=== PATIENT | male | born 1960 | race Caucasian/White ===

== ENCOUNTER 2024-08-03 11:14 | Emergency (ER) | payer MEDICAID, OTHER, SELFPAY ==
--- NOTE | ~2024-08-03 | XR_ITS ---
EXAMINATION: XR ABDOMEN 1 VIEW (KUB) HISTORY: r/o ingested foreign body COMPARISON: There are no prior studies for comparison. FINDINGS: Two supine views of the abdomen are submitted. The bowel gas pattern is unremarkable, without evidence of mechanical obstruction. There are surgical clips in the right upper quadrant and right lower quadrant. There is a phlebolith the left hemipelvis. No radiopaque foreign body is identified. There are no abnormal soft tissue masses. The bones are intact. XR/XR KUB IMPRESSION: No radiopaque foreign body is identified. Electronically signed by: Gianfranco Nicole MD 08/03/2024 01:14 PM EST
[2024-08-03 12:12] VITALS: BP 118/87; PULSE 58; RESP 20; TEMP 36.9; O2SAT 95; BMI 28.2
--- NOTE | 2024-08-03 12:48 | ED.GENADULT ---
HPI - General Adult General Chief complaint: General Medical Stated complaint: dental issue Time Seen by Provider: 08/03/24 12:34 Source: patient and parts interpreter Mode of arrival: ambulatory Limitations: no limitations History of Present Illness ED Provider: JILL SANCHEZ narrative: 64 yo male otherwise healthy here with c/o swallowing a crown he thinks or Saturday he wants it replaced but he dentist states he needs an xray first before he can have it replaced. He has no abdominal pain n/v/d, fevers. My dentist is endy BARRIOS complaint: FB ingestion Onset (ago): day(s) (5) Location: mouth Radiation: non-radiation Severity: mild Relieving factors: none Exacerbating factors: none Associated symptoms: denies other symptoms Treatments prior to arrival: none Related Data Allergies Allergy/AdvReac Type Severity Reaction Status Date / Time No Known Allergies Allergy Verified 08/03/24 12:21 Review of Systems Review of Systems: Constitutional : No Fever, No Chills, No Fatigue ENT/Mouth : No sore throat, No Rhinorrhea Eyes: No Eye Pain, No Swelling, No Redness Cardiovascular : No Chest Pain, No SOB, No Dyspnea on Exertion Respiratory : No Cough, No Sputum Gastrointestinal : No Nausea, No Vomiting, No Diarrhea, No abdominal Pain Genitourinary : No Dysuria, No Urinary Frequency, No Hematuria, Musculoskeletal : No joint pain, No Myalgias All other systems reviewed and are negative [facility] Past Medical History Attestation statement: The following information was validated with the patient. Medical History (Updated 08/03/24 @ 12:57 by Yamini Ford DO) No pertinent past medical history Social History Social History (Updated 08/03/24 @ 12:57 by Yamini Ford DO) Patient Tobacco Use Status: Never used Tobacco Advance Directives: No Advance Directives Information Provided: No Do you have a plan to hurt others: No Plan Physical Exam ED Vital Signs: Vital Signs - 24 hr 08/03/24 12:12 Temperature 98.4 F Pulse Rate 58 Respiratory Rate 20 Blood Pressure 118/87 Pulse Oximetry 95 Oxygen Delivery Method Room Air BMI result Body Mass Index 28.2 Appearance: Alert. Oriented X3. No acute distress. Eyes: Pupils equal, round and reactive to light. ENT: Pharynx normal. Neck: Normal inspection. Neck supple. CVS: Normal heart rate and rhythm. Pulses normal. Respiratory: No respiratory distress. Breath sounds normal. Abdomen: Soft and nontender. Skin: Skin warm and dry. Normal skin color. Normal skin turgor. Extremities: No lower extremity edema. No calf ttp Neuro: Oriented X 3. No motor deficit. No sensory deficit. CN2-12 intact Medical Decision Making Medical Decision Making MDM Narrative: 64 yo male with no known PMH here with c/o needing KUB for possible crown FB ingestion about 4 to 5 days ago he has no GI complaints will obtain xray and I did write on his dental note request that there is no FB noted today. Differential Diagnosis Differential Diagnoses: The differential diagnosis associated with the presentation includes FB ingestion, passed FB Independent Interpretation I performed an independent interpretation of an: Plain X-Ray (no FB seen) Radiology Impression Discussion of test interpretation with radiology: I have reviewed the radiologist's reading. Discharge Plan Discharge Clinical Impression: Normal exam Patient Disposition: Home, Self-Care Instructions: Normal Exam (ED) Additional Instructions: return for fevers, vomiting, unable to eat or drink, severe abdominal pain KUB negative for foreign body today Print Language: Bermudian
--- OUTSIDE RECORDS SUMMARY | 2024-08-03 14:02 | XMS_ITS | Clinical Summary ---
Author Organization [facility] Address [address] [place] [address] [address] [place] [address] Care Team Providers Care Tank Carpenter Name Role Phone Unavailable Primary Care Provider Unavailabl e Allergies No known active allergies Medications clomiPRAMINE (Anafranil) 25 MG capsule Take 25 mg by mouth at bedtime. Active clonazePAM (KlonoPIN) 0.5 MG tablet Take 0.5 mg by mouth 2 times daily. Active losartan (Cozaar) 25 MG tablet Take by mouth. Active levothyroxine (Tirosint) 125 MCG capsule Take by mouth before breakfast. Active famotidine (Pepcid) 40 MG tablet Take by mouth. Active aspirin 325 MG tablet Take 325 mg by mouth in the morning. Active atorvastatin (Lipitor) 40 MG tablet Take 40 mg by mouth in the morning. 08/23/2022 Active lamoTRIgine (LaMICtal) 200 MG tablet TAKE 1 TABLET BY MOUTH EVERY EVENING (TOTAL DAILY DOSE 300 MG/DAY) 10/22/2022 Active labetalol (Normodyne) 100 MG tablet Take 1 tablet by mouth at bedtime. 09/19/2022 Active levothyroxine (Synthroid, Levoxyl) 25 MCG tablet Take 25 mcg by mouth. 10/13/2022 Active omeprazole (PriLOSEC) [address] capsule capsule(s) oral 03/11/2020 Active Active Problems No known active problems Encounters Date Type Department Care Team Description 07/31/2024 10:00 AM EST Office Visit [facility] ADULT DENTAL [address] [place] [address] Bharati Costello 06/15/2024 11:00 AM EST Office Visit [facility] ADULT DENTAL [address] [place] [address] Bharati Costello from Last 3 Months Immunizations Name Administration Dates Next Due Hep B, adult 03/01/2016,08/24/2015,07/26/2015 Influenza injectable quadriv alent IIV4 with preservative 03/01/2016 Influenza injectable quadriv alent preservative free 07/12/2023,04/16/2022,03/27/2021,2020,04/21/2019,06/02/2018,08/01/2017,1 07/10/2014 Pfizer Covid-19 Vaccine 12+ 07/12/2023,0 06/27/2021,10/14/2020,2020 Tdap 06/08/2015 Social History Tobacco Use Types Packs/Day Years Used Date Smoking Tobacco: Never Smokeless Tobacco: Never Tobacco Cessation:Counseling Given: Not Answered Sex and Gender Information Value Date Recorded Sex Assigned at Male 06/29/2022 12:57 PM EST Legal Sex Male 9:02 AM EST Gender Identity Male 06/29/2022 12:57 PM EST Sexual Orientation Straight 06/29/2022 12 :57 PM EST Last Filed Vital Signs Vital Sign Reading Time Taken Comments Blood Pressure 129/82 2024 9:08 AM EDT ox9 4 Pulse 78 2024 9:08 AM EDT Temperature 36.6 ??C (97.8 ??F) 08/06/2022 12:[address] Respiratory Rate 16 08/06/2022 12:56 PM EST Oxygen Saturation 95% 08/06/2022 12:56 PM EST Inhaled Oxygen Concentration - - Weight 80.4 kg (177 lb 3.2 oz) 08/06/2022 12:56 PM EST Height - - Body Mass Index - - Plan of Treatment Health Maintenance Due Date Last Done Comments CT Colonography 1961 Colonoscopy 1961 Colorectal Cancer Screening 1961 Depression Screening 1961 FIT DNA/Cologuard 1961 FIT 1961 FOBT 1961 HIV Screening 1961 Lipid Panel 1961 SDOH Screening 1961 Sigmoidoscopy 1961 Alcohol/Substance Use Screening 1973 Hepatitis C Screening 1979 Hepatitis A Vaccines (1 of 2 - Risk 2-dose series) 01/09/1980 Pneumococcal Vaccine: 50+ Years (1 of 1 - PCV) 2011 RSV Patients and Patients Aged 60 years or older (1 - Risk 60-74 years 1-dose series) 2021 Dental Oral Exam 05/11/2024 11/08/2023 Dental Prophylaxis 05/11/2024 11/08/2023 Dental X-Ray: Bitewings 01/01/2025 01/01/20, 11/08/2023, 07/19/2022 DTaP/Tdap/Td Vaccines (2 - Td or Tdap) 06/08/2025 06/08/2015 Tobacco Screening 07/31/2025 07/31/2024 Dental X-Ray: Full Mouth 01/01/2027 01/01/2024, 06/25 Hepatitis B Vaccines Completed 03/01/2016, 08/24/2015, 07/26/2015 COVID-19 Vaccine Completed 03/20/2024, , 06/27/2021, Additional history exists Influenza Vaccine Completed 03/20/2024, , 04/16/2022, Additional history exists Zoster Vaccines Completed 03/20/2024, 08/21/2023 HIB Vaccines Aged Out No longer eligi ble based on patient's age to complete this topic HPV Vaccines Aged Out No longer eligi ble based on patient's age to complete this topic IPV Vaccines Aged Out No longer eligi ble based on patient's age to complete this topic Meningococcal Vaccine Aged Out No thony krysta eligible based on patient's age to complete this topic RSV under 20 months Aged Out No longe r eligible based on patient's age to complete this topic Rotavirus Vaccines Aged Out No longer eligible based on patient's age to complete this topic Procedures Procedure Name Priority Date/Time Associated Diagnosis Comments ADJUNCTIVE GENERAL SERVICES - PROFESSIONAL VISITS - CASE PRESENTATION, SUBSEQUENT TO DETAILED AND EXTENSIVE TREATMENT PLANNING Routine 07/31/2024 10:00 AM EST LIMITED ORAL EVALUATION - PROBLEM FOCUSED Routine 07/31/2024 10:00 AM EST ADJUNCTIVE GENERAL SERVICES - PROFESSIONAL VISITS - CASE PRESENTATION, SUBSEQUENT TO DETAILED AND EXTENSIVE TREATMENT PLANNING Routine 06/15/2024 11:00 AM EST ADJUNCTIVE GENERAL SERVICES - UNCLASSIFIED TREATMENT - PALLIATIVE TREATMENT OF DENTAL PAIN - PER VISIT Routine 06/15/2024 11:00 AM EST DIAGNOSTIC - DIAGNOSTIC IMAGING - INTRAORAL - COMPREHENSIVE SERIES OF RADIOGRAPHIC IMAGES Routine 01/01/2024 9:00 AM EDT Full PROPHYLAXIS - ADULT Routine 024 11:00 AM EDT PERIODIC ORAL EVALUATION - ESTABLISHED PATIENT Routine 11/08/2023 11:00 AM EDT from Last 3 Months or Most Recently Relevant to Health Maintenance [place] [address] [place] [address] [facility] LIMITED ADULT DENTAL - [place] FULL (MEDICAID) [place] ADULT DENTAL - [place] FULL (MEDICAID)
--- OUTSIDE RECORDS SUMMARY | 2024-08-03 14:02 | XMS_ITS | Encounter Summary ---
Author Organization [employer] [facility] Address [address] [place] [address] [address] [place] [address] Care Team Providers Care Aoc Plans Intelligence Officer Name Role Phone Unavailable Primary Care Provider Unavailabl e Reason for Visit * Reason Comments Dental Exam Pt swallowed crown Encounter Details Date Type Department Care Team (Late st Contact Info) Description 07/31/2024 10:00 AM EST Office Visit [facility] ADULT DENTAL [address] [place] [address] CostelloBharati ya [address] [place] [address] Social History Tobacco Use Types Packs/Day Years Used Date Smoking Tobacco: Never Smokeless Tobacco: Never Sex and Gender Information Value Date Recorded Sex Assigned at Male 06/29/2022 12:57 PM EST Legal Sex Male 9:02 AM EST Gender Identity Male 06/29/2022 12:57 PM EST Sexual Orientation Straight 06/29/2022 12 :57 PM EST documented as of this encounter Progress Notes * Bharati Costello - 07/31/2024 10:00 AM EST Images from the original note were not included. Dental procedures in this visit D0140 - LIMITED ORAL EVALUATION - PROBLEM FOCUSED (Completed) Service provider: Bharati Costello Billing provider: Bharati Costello [id number] - ADJUNCTIVE GENERAL SERVICES - PROFESSIONAL VISITS - CASE PRESENTATION, SUBSEQUENT TO DETAILED AND EXTENSIVE TREATMENT PLANNING (Completed) Service provider: Bharati Costello Billing provider: Bharati Costello Patient ID: Asher Kirkpatrick is a 64 y.o. male. Time Out: Timeout Date: 07/31/24 (limited), Timeout Time: 1028 Location: [facility] Tooth: #7 Procedure: Exam Verified the above with patient, photography assistant, and provider. Confirmed via patient's chart, intraorally and by radiographs. Microphone Operator: Yes. Language: luxembourgish. Microphone Operator's Name: Johanna Chief Complaint Patient presents with Dental Exam Pt swallowed crown Medical Hx: Vitals: There were no vitals taken for this visit. Past Medical History: Diagnosis Date Depression Diabetes mellitus (CMS/HCC) Disease of thyroid gland Hypertension Mitral valve prolapse Stomach problems Medications: Outpatient Encounter Medications as of 07/31/2024 Medication Sig Dispense Refill aspirin 325 MG tablet Take 325 mg by mouth in the morning. atorvastatin (Lipitor) 40 MG tablet Take 40 mg by mouth in the morning. clomiPRAMINE (Anafranil) 25 MG capsule Take 25 mg by mouth at bedtime. clonazePAM (KlonoPIN) 0.5 MG tablet Take 0.5 mg by mouth 2 times daily. famotidine (Pepcid) 40 MG tablet Take by mouth. labetalol (Normodyne) 100 MG tablet Take 1 tablet by mouth at bedtime. lamoTRIgine (LaMICtal) 200 MG tablet TAKE 1 TABLET BY MOUTH EVERY EVENING (TOTAL DAILY DOSE 300 MG/DAY) levothyroxine (Synthroid, Levoxyl) 25 MCG tablet Take 25 mcg by mouth. levothyroxine (Tirosint) 125 MCG capsule Take by mouth before breakfast. losartan (Cozaar) 25 MG tablet Take by mouth. omeprazole (PriLOSEC) [address] capsule capsule(s) oral No facility-administered encounter medications on file as of 07/31/2024. 64 y/o male presents for a limited exam seen by Dr. Bharati Costello, KRYSTLE. Chief Complaint: I swallowed my crown Medical History: Patient does not report any changes in health issues that could alter the Treatment Plan. Medical consult / medical clearance needed: YES Allergies: Reviewed in EHR Medications: Reviewed in EHR Discussion: - Pt stated that patient swallowed crown #7 yesterday morning while eating something. - Pt was advised to go to PCP or ER to get evaluation for best interest of the patient. - Pt was breathing normally, had no discomfort as stated by pt but pt was advised to go to PCP/ER and medical clearance form was given to the patient. Made sure pt was comfortable on chair during ourappointment and calm. -Upon exam, area in relation to #7 looked normal with no redness/tenderness/inflammation. -Pt was informed in the previous appointments that there is very small amount of existing tooth structure present due to which the crown comes off. Pt was informed that new crown is not a good optionlike informed in previous appointments. - Pt was previously recommended extraction (with Dr. Langley) and replacement of edentulous space with possibly addition of tooth to existing removable prosthesis (but front end java developer needs to confirm if patient's insurance covers that) since pt also asked for options to replace it after extraction. -Pt was made aware that pt has traumatic bite and pt was informed by another provider in the past- pt doesn't remember that. -Pt was explained last time that crown can come off again as it's not a permanent treatment. Pt understood and agreed; was satisfied with our conversation. -Pt has existing upper and lower cast partial dentures. -All questions answered. Soft tissue exam: WNL; OCS- negative Head and neck exam: Lymph Nodes, Lips, Palate, Buccal Mucosa, Floor of Mouth, Tongue, Tonsils, Alveolar Ridges, Oropharynx, Salivary Ducts, Vestibules - no abnormal findings. TMJ/Occlusal - TMJ is within normal limits. Oral Cancer Risk - low Oral Hygiene Instruction Provided - Yes Oral Hygiene Instructions: Erie two times daily, modified betancourt technique, Floss daily, Electric toothbrush, Soft bristle toothbrush, Erie Tongue. Referrals - None All questions answered and expressed understanding. Dismissed in good condition. NV: 6 month recall - after medical clearance received! Associate Professor Of Education: Johanna Silva Dentist: Dr. Bharati Costello, DMD documented in this encounter Plan of Treatment Scheduled Orders Name Type Priority Associated Diagnoses Orde r Schedule PERIODIC ORAL EVALUATION - ESTABLISHED PATIENT Dental Routine 1 Occurren janine starting 07/31/2024 documented as of this encounter Procedures Procedure Name Priority Date/Time Associated Diagnosis Comments LIMITED ORAL EVALUATION - PROBLEM FOCUSED Routine 07/31/2024 10:00 AM EST ADJUNCTIVE GENERAL SERVICES - PROFESSIONAL VISITS - CASE PRESENTATION, SUBSEQUENT TO DETAILED AND EXTENSIVE TREATMENT PLANNING Routine 07/31/2024 10:00 AM EST documented in this encounter Visit Diagnoses Not on filedocumented in this encounter
--- OUTSIDE RECORDS SUMMARY | 2024-08-03 14:02 | XMS_ITS | Encounter Summary ---
Author Organization [facility] Address [address] [place] [address] [address] [place] [address] Care Team Providers Care Coal Bagger Name Role Phone Unavailable Primary Care Provider Unavailabl e Reason for Visit * Reason Comments Dental Exam Limited, crown fell off. Encounter Details Date Type Department Care Team ([facility] st Contact Info) Description 04/08/2024 11:00 AM EDT Office Visit [facility] ADULT DENTAL [address] [place] [address] CostelloBharati ya [address] [place] [address] Social History Tobacco Use Types Packs/Day Years Used Date Smoking Tobacco: Never Smokeless Tobacco: Never Sex and Gender Information Value Date Recorded Sex Assigned at Male 06/29/2022 12:57 PM EST Legal Sex Male 9:02 AM EST Gender Identity Male 06/29/2022 12:57 PM EST Sexual Orientation Straight 06/29/2022 12 :57 PM EST documented as of this encounter Progress Notes * Bharati Costello - 04/08/2024 11:00 AM EDT Dental procedures in this visit D0140 - LIMITED ORAL EVALUATION - PROBLEM FOCUSED 7 (Completed) Service provider: Bharati Costello Billing provider: Bharati Costello [id number] - CASE PRESENTATION, DETAILED AND EXTENSIVE TREATMENT PLANNING (Completed) Service provider: Bharati Costello Billing provider: Bharati Costello [id number] - INTRAORAL - PERIAPICAL FIRST RADIOGRAPHIC IMAGE (Completed) Service provider: Bharati Costello Billing provider: Bharati Costello Patient ID: Asher Kirkpatrick is a 64 y.o. male. Time Out: Timeout Date: 04/08/24 Location: [facility] Tooth: #7 Procedure: Exam and X-rays Verified the above with patient, optometric assistant, and provider. Confirmed via patient's chart, intraorally and by radiographs. Suction Dredge Dumping Supervisor: Yes. Language: Telugu. Suction Dredge Dumping Supervisor's Name: Johanna Chief Complaint Patient presents with Dental Exam Limited, crown fell off. Medical Hx: Vitals: There were no vitals taken for this visit. Past Medical History: Diagnosis Date Depression Diabetes mellitus (CMS/HCC) Disease of thyroid gland Hypertension Mitral valve prolapse Stomach problems Medications: Outpatient Encounter Medications as of 04/08/2024 Medication Sig Dispense Refill aspirin 325 MG [...] facility-administered encounter medications on file as of 04/08/2024. Head and Neck Exam: Lymph Nodes, Lips, Palate, Buccal Mucosa, Floor of Mouth, Tongue, Tonsils, Alveolar Ridges, Oropharynx, Salivary Ducts, and Vestibules - no abnormal findings OCS: negative Oral Hygiene Instructions: reviewed Discussion: - Pt complained that my crown keeps falling off and it's been about fifth time now as translated by Johanna. - Upon clinical exam, pt was explained that there is very small amount of tooth structure present due to which crown comes off. Pt was informed that new crown is not a good option since pt has overjet less than 0.5mm as well and pt was explained and made aware of it. - Pt was recommended extraction (with Dr. Langley) and replacement of edentulous space with implant/ addition of tooth to existing removable prosthesis since pt also asked for options to replace it after extraction. -Pt was made aware that pt has traumatic bite and pt was informed by another provider in the past- pt doesn't remember that. -Pt was insisting to get a new crown, so pt was advised to think about it and when pt will come back for jainism #8. -Pt has existing upper and lower cast partial dentures. -1 PA taken today - RCT+post evident. -Pt has dislodged jainism in #8; planned for jainism and pt is interested to get it done. Tx done - - Existing crown cemented after cleaning thoroughly. - Patient tolerated procedure well, all questions answered and pt expressed understanding. Dismissed in good condition. NV: Restorative #8 Coordinator Hotels: Johanna Silva Dentist: Dr. Bharati Costello, DMD documented in this encounter Plan of Treatment Scheduled Orders Name Type Priority Associated Diagnoses Orde r Schedule 7 7 EXTRACTION, ERUPTED TOOTH OR EXPOSED ROOT (ELEVATION AND/OR FORCEPS REMOVAL) Dental Routine 1 Occurrences s tarting 04/08/2024 documented as of this encounter Procedures Procedure Name Priority Date/Time Associated Diagnosis Comments 7 LIMITED ORAL EVALUATION - PROBLEM FOCUSED Routine 04/08/2024 11:00 AM EDT INTRAORAL - PERIAPICAL FIRST RADIOGRAPHIC IMAGE Routine 04/08/2024 11:00 AM EDT ADJUNCTIVE GENERAL SERVICES - PROFESSIONAL VISITS - CASE PRESENTATION, SUBSEQUENT TO DETAILED AND EXTENSIVE TREATMENT PLANNING Routine 04/08/2024 11:00 AM EDT documented in this encounter Visit Diagnoses Not on filedocumented in this encounter
[2024-08-03 15:44] VITALS: BP 118/87; PULSE 58; RESP 20; TEMP 36.9; O2SAT 95
== END 2024-08-03 12:58 | disposition home or self-care (01) ==
PROVIDERS: Emergency Provider Emergency Medicine
DX: Z03.821 Encounter for observation for suspected ingested foreign body ruled out (principal)
CPT/HCPCS: 74018; 99282; 99283

== ENCOUNTER → 2024-08-03 12:22 | Outpatient (BNV) | payer MEDICAID, SELFPAY | PROVIDERS: Emergency Provider Emergency Medicine; Visit Provider Radiology Diagnostic Radiology | DX: Z03.821 Encounter for observation for suspected ingested foreign body ruled out (principal) | CPT/HCPCS: 74018 ==

== ENCOUNTER 2025-02-03 18:45 | Emergency (ER) | payer MEDICAID, OTHER, SELFPAY ==
--- NOTE | ~2025-02-03 | US_ITS ---
CLINICAL HISTORY: diffuse pain, hx prostate CA US Scrotum with Doppler Comparison: None provided Findings: Right testicle normal echotexture, 4.2 x 2.3 x 3.0 cm, corresponds to a volume of 15.1 mL. Left testicle normal echotexture, 3.9 x 1.8 x 2.3 cm, corresponds to a volume of 8.5 mL. Normal color flow and arterial/venous spectral tracing of both testicles. Epididymides are unremarkable. No varicoceles. No hydroceles. IMPRESSION: Asymmetrically large right testicle however, otherwise no sonographic evidence of torsion. This document has been electronically signed by: Joseline Amos MD on 02/03/2025 20:25:51
[2025-02-03 18:53] VITALS: BP 147/104; PULSE 77; RESP 14; O2SAT 94; BMI 26.6
--- NOTE | 2025-02-03 18:53 | ED.GENADULT ---
HPI - General Adult General Chief complaint: General Medical Stated complaint: prostate cancer, needs eko of testicle Time Seen by Provider: 02/03/25 23:33 Source: patient and family Mode of arrival: ambulatory Limitations: no limitations History of Present Illness ED Provider: Dr. Sharon Reynolds HPI narrative: Patient comes to the emergency room accompanied by family. Patient states that he is currently being treated for prostate cancer in [place]. Patient states that he has had 2 episodes of bilateral testicular pain. Patient states that usually the pain or self resolves. Today, patient called the office to let them know that he was having testicular pain and they asked him to come to the emergency room to rule out testicular torsion. Patient states that at this time the pain is patent, a bit throbbing but it is minimal, patient denies penile discharge, no hematuria or dysuria, no fever chills, no abdominal pain or flank pain. Related Data Previous Rx's ?Medication ?Instructions ?Recorded tramadol 50 mg tablet 50 mg PO BID PRN pain #10 tabs 02/04/25 Allergies Allergy/AdvReac Type Severity Reaction Status Date / Time No Known Allergies Allergy Verified 02/03/25 18:58 Review of Systems Review of Systems: Constitutional : No Weight loss, No Fever, No Chills, No Night Sweats, No Fatigue, No Malaise ENT/Mouth : No Hearing loss, No Ear Pain, No Nasal Congestion, No Sinus Pain, No Hoarseness, No sore throat, No Rhinorrhea, No Swallowing Difficulty Eyes: No Eye Pain, No Swelling, No Redness, No Foreign Body, No Discharge, No Vision Changes Cardiovascular : No Chest Pain, No SOB, No Dyspnea on Exertion, No Orthopnea, No Edema, No Palpitations Respiratory : No Cough, No Sputum, No Wheezing, No Smoke Exposure, No Dyspnea Gastrointestinal : No Nausea, No Vomiting, No Diarrhea, No Constipation, No abdominal Pain, No Hematochezia, No Melena Genitourinary : Complaining of intermittent testicular pain, No Dysuria, No Urinary Frequency, No Hematuria, No Urinary Incontinence, No Urgency, No Flank Pain, No Urinary Flow Changes, No Hesitancy Musculoskeletal : No joint pain, No Myalgias, No Joint Swelling Skin : No Skin Lesions, No rash Neuro : No Weakness, No Numbness, No Paresthesias, No Loss of Consciousness, No Dizziness, No Headache Psych : No Anxiety/Panic, No Depression, No SI/HI/AH/VH, No Social Issues, Heme/Lymph: No Bruising, No Bleeding,No Lymphadenopathy Endocrine : No Polyuria, No Polydipsia, No Temperature Intolerance [facility] Past Medical History Medical History (Updated 02/04/25 @ 00:13 by Sharon Reynolds MD) No pertinent past medical history Social History Social History (Updated 08/03/24 @ 12:57 by Yamini Ford DO) Patient Tobacco Use Status: Never used Tobacco Smoked in Last 30 Days: No Use of substances other than those prescribed or required for medical reasons: No Advance Directives: No Advance Directives Information Provided: Yes Do you have a plan to hurt others: No Plan Physical Exam ED Exam Exam: Appearance: Alert. Oriented X3. No acute distress. Eyes: Pupils equal, round and reactive to light. ENT: Pharynx normal. Neck: Normal inspection. Neck supple. No lymph nodes noted. No crepitus CVS: Normal heart rate and rhythm. Pulses normal. Normal S1 and S2 Respiratory: No respiratory distress. Breath sounds normal. No Wheezing. No rales Abdomen: Soft and nontender. No rigidity. No distention. : Normal male genitalia, no significant tenderness to palpation in the testicles, no erythema, no palpable inguinal nodes Skin: Skin warm and dry. Normal skin color. Normal skin turgor. Extremities: No lower extremity edema. No Lacerations. No Rash Neuro: Oriented X 3. No motor deficit. No sensory deficit. Moving all extremities. No slurred speech. CN 2 through 12 grossly intact Psych: calm, cooperative, normal affect Vital Signs: Vital Signs - 24 hr 02/03/25 18:53 02/03/25 22:54 02/03/25 23:22 Temperature 97.4 F 97.9 F Pulse Rate 77 63 61 Respiratory Rate 14 20 16 Blood Pressure 147/104 H 149/85 H 133/84 Pulse Oximetry 94 99 96 Oxygen Delivery Method Nasal Cannula Room Air Room Air BMI result Body Mass Index 26.6 Course Course Course Narrative: This is a rapid medical exam performed by Parker Bingham NP: Additional HPI, ROS, PE not included below will be deferred to primary provider. Patient is a 65-year-old Burmese speaking male presenting to the ED stating that he has prostate cancer, currently being treated in [place]. Told his provider 3 wks ago he was having bilateral testicular pain, was told to wait for outpatient imaging on the . Pain has been worse for the past week, so he was advised to come to the ED for u/s. Plan: UA, U/S Medical Decision Making Medical Decision Making [facility] Narrative: My interpretation of labs: No significant abnormality in patient's hematology or nutritional chemist, urinalysis negative for UTI Ultrasound shows that the right testicle is a bit more enlarged, no masses, no torsion. I discussed the above-mentioned with the patient. Patient states that he has been taking Tylenol without any significant relief. Patient requesting something a little bit stronger to help him with the pain and get some sleep. Patient was given a dose of tramadol here in the emergency room. His family will be driving him home. Small prescription of tramadol was sent to his pharmacy. Patient states that on February 10 he has an appointment pending with his urologist. Per patient's request, we printed his labs and ultrasound report Differential Diagnosis Differential Diagnoses: The differential diagnosis associated with the presentation includes (Testicular torsion, testicular mass, epididymitis) Admission/Observation Consideration of admission/observation: Escalation of care including admission/observation considered (Given patient's past medical history and symptoms, observation was considered) Lab Data [facility] Lab Attestation statement: I reviewed the patient's lab results. 02/03/25 19:52 02/03/25 19:52 Labs: Lab Results 02/03/25 02/03/25 Range/Units 19:52 22:43 WBC 6.6 (4.8-10.8) X10*3/uL RBC 4.08 L (4.60-5.80) X10*6/uL Hgb 13.3 L (14.0-18.0) g/dl Hct 37.8 L (42.0-52.0) % MCV 92.6 (80.0-98.0) fL MCH 32.6 (27.0-33.0) pg MCHC 35.2 (31.0-36.0) g/dl RDW 12.4 (11.0-16.0) % Plt Count 221 (160-400) X10*3/uL MPV 8.4 L (9.4-12.4) fL Immature Gran % (Auto) 0.2 (0.0-0.4) % Neut % (Auto) 56.4 (45-73) % Lymph % (Auto) 32.1 (20-40) % Gage % (Auto) 8.4 (2-11) % Eos % (Auto) 2.1 (0-4) % Baso % (Auto) 0.8 (0-2) % Lymph # (Auto) 2.1 (1.2-4.9) X10*3/uL Gage # (Auto) 0.6 (0.1-1.2) X10*3/uL Eos # (Auto) 0.1 (0.0-0.4) X10*3/uL Baso # (Auto) 0.1 (0.0-0.2) X10*3/uL Abs Immat Gran (auto) 0.01 (0.00-0.03) X10*3/uL Absolute Neuts (auto) 3.7 (2.0-8.3) x10*3/uL Absolute Nucleated RBC 0.000 (0.0-0.012) X10*3/uL Nucleated RBC % (auto) 0.0 (0.0-0.2) /100WBC Sodium 142 (135-145) mmol/L Potassium 4.0 (3.3-5.1) mmol/L Chloride 105 (96-108) mmol/L Carbon Dioxide 29 (22-29) mmol/L Anion Gap 12 (12-20) BUN 17 H (9-16) mg/dL Creatinine 1.04 (0.5-1.4) mg/dL Estim Creat Clear Calc 64.7 Estimated GFR > 60 Random Glucose 95 (60-115) mg/dL Calcium 9.4 (8.4-10.2) mg/dL Total Bilirubin 0.7 (0.0-1.0) mg/dL AST 44 H (5-37) U/L ALT 28 (0-40) U/L Alkaline Phosphatase 57 (39-117) U/L Total Protein 7.4 (6.5-8.0) g/dL Albumin 4.8 (3.5-5.0) g/dL Urine Color Yellow Urine Appearance Clear Urine pH 6.5 (5.0-9.0) Ur Specific [place] 1.015 (1.005-1.025) Urine Protein Negative (Neg-Trace) mg/dL Urine Glucose (UA) Negative (Negative) mg/dL Urine Ketones Negative (Negative) mg/dL Urine Blood Negative (Negative) Urine Nitrite Negative (Negative) Ur Leukocyte Esterase Negative (Negative) Independent Interpretation I performed an independent interpretation of an: Ultrasound Radiology Impression Discussion of test interpretation with radiology: I have reviewed the radiologist's reading. Radiologist Impression: Right testicle normal echotexture, 4.2 x 2.3 x 3.0 cm, corresponds to a volume of 15.1 mL. Left testicle normal echotexture, 3.9 x 1.8 x 2.3 cm, corresponds to a volume of 8.5 mL. Normal color flow and arterial/venous spectral tracing of both testicles. Epididymides are unremarkable. No varicoceles. No hydroceles. IMPRESSION: Asymmetrically large right testicle however, otherwise no sonographic evidence of torsion. Critical Care Time Critical Care Time Critical Care Time: Yes Total Critical Care Time: 35 Attestation: I have personally provided critical care time. Time includes review of lab data, radiology results, discussion with consultants, and monitoring for potential decompensation. Intervention performed as documented. Discharge Plan Discharge Clinical Impression: Pain in testicle Patient Disposition: Home, Self-Care Instructions: Scrotal Pain (ED) Additional Instructions: Please follow-up with your primary care physician tomorrow. If you have any worsening or new symptoms, please return to the emergency room or call 911 Prescriptions: New tramadol 50 mg tablet 50 mg PO BID PRN (Reason: pain) Qty: 10 0RF Print Language: Burmese
[2025-02-03 19:56] LABS: MANUAL DIFF FLAG NO
[2025-02-03 20:00] LABS: Hematocrit 37.8 % (42.0-52.0); Hemoglobin 13.3 g/dl (14.0-18.0); Imm Gran Abs Auto 0.01 X10*3/uL (0.00-0.03); Imm Gran Pct Auto 0.2 % (0.0-0.4); Lymphocytes Absolute Auto 2.1 X10*3/uL (1.2-4.9); Mean Corpuscular HGB Conc 35.2 g/dl (31.0-36.0); Mean Corpuscular Hemoglobin 32.6 pg (27.0-33.0); Mean Corpuscular Volume 92.6 fL (80.0-98.0); NRBC Abs Auto 0.000 X10*3/uL (0.0-0.012); NRBC Pct Auto 0.0 /100WBC (0.0-0.2); Platelet Count 221 X10*3/uL (160-400); Red Blood Count 4.08 X10*6/uL (4.60-5.80); White Blood Count 6.6 X10*3/uL (4.8-10.8)
[2025-02-03 20:14] LABS: Alanine Aminotransferase 28 U/L (0-40); Albumin Level 4.8 g/dL (3.5-5.0); Alkaline Phosphatase 57 U/L (39-117); Anion Gap 12 (12-20); Aspartate Amino Transferase 44 U/L (5-37); Blood Urea Nitrogen 17 mg/dL (9-16); Calcium 9.4 mg/dL (8.4-10.2); Carbon Dioxide 29 mmol/L (22-29); Chloride 105 mmol/L (96-108); Creatinine Clr Calc Pharmacy 64.7; Estimated Glomerular Filt Rate > 60; Potassium 4.0 mmol/L (3.3-5.1); Sodium 142 mmol/L (135-145); Total Protein 7.4 g/dL (6.5-8.0)
[2025-02-03 22:54] VITALS: BP 149/85; PULSE 63; RESP 20; TEMP 36.3; O2SAT 99
[2025-02-03 22:55] LABS: Appearance Urine Clear; Glucose Urine UA Negative (Negative); PH 6.5 (5.0-9.0); Specific Gravity - Urine 1.015 (1.005-1.025)
[2025-02-03 23:22] VITALS: BP 133/84; PULSE 61; RESP 16; TEMP 36.6; O2SAT 96
--- NOTE | 2025-02-04 00:27 | PC.NURSE ---
pt medicated per MAR
[2025-02-04 00:28] VITALS: BP 126/84; PULSE 61; RESP 16; TEMP 36.6; O2SAT 93
== END 2025-02-04 00:29 | disposition home or self-care (01) ==
PROVIDERS: Registered Nurse Emergency; Emergency Provider Emergency Medicine; PCP Family Medicine
DX: N50.811 Right testicular pain (principal); N50.812 Left testicular pain; R10.2 Pelvic and perineal pain
CPT/HCPCS: 36415; 76870; 80053; 81003; 85025; 93975; 99284

== ENCOUNTER → 2025-02-03 18:57 | Outpatient (BNV) | payer MEDICAID, SELFPAY | PROVIDERS: PCP Family Medicine; Visit Provider Student in an Organized Health Care Education/Training Program | DX: N50.811 Right testicular pain (principal); N50.812 Left testicular pain; Z85.46 Personal history of malignant neoplasm of prostate | CPT/HCPCS: 93975 ==